=== PATIENT | female | born 2005 | race Two or more races ===

== ENCOUNTER 2025-06-15 22:53 | Inpatient (IN) | payer OTHER ==
[~2025-06-15] VITALS: Ht 152.4 cm; Wt 117.9 kg
[2025-06-15 20:06] VITALS: BP 123/73
[2025-06-15] MEDS ORDERED: RINGERS SOLUTION,LACTATED 1,000 ML IV SCH (23:15)
[2025-06-15] MEDS ORDERED: FOLIC ACID0.8 M1 PO (23:35)
[2025-06-15] MEDS ORDERED: PRENATAL + DHA1 EAC1 PO (23:35)
[2025-06-15 23:36] VITALS: BP 121/75
[2025-06-16 00:05] VITALS: BP 136/74
[2025-06-16 01:39] LABS: URINE APPEARANCE Cloudy; URINE BILIRRUBIN Negative (NEGATIVE); URINE BLOOD Negative; URINE COLOR Dark Yellow; URINE GLUCOSE Negative (NEGATIVE); URINE KETONE Negative (NEGATIVE); URINE LEUKOCYTE Large; URINE NITRATE Negative; URINE PROTEIN Trace (NEGATIVE); URINE UROBILINOGEN 1.0 E.U./dl
[2025-06-16 01:40] LABS: BASO % 0.3 % (0.1-1.2); EOS # 0.97 (0.04-0.54); EOS % 8.3 % (0.7-7.0); LYMPH # 1.17 (1.18-3.74); LYMPH % 10.0 % (19.3-53.1); MEAN PLATELET VOLUME 11.30 fl (9.4-12.4); MONO # 1.15 (0.24-0.82); MONO % 9.8 % (4.7-12.5); NEUT # 8.34 (1.56-6.13); NEUT % 71.2 % (34.0-71.1); RED CELL DISTRIBUTION WIDTH 14.7 % (11.6-14.4)
[2025-06-16 01:42] LABS: URINE BACTERIA 3027.4 uL (0.0-1933); URINE EPITHELIAL CELLS 19.0 uL (0.0-38.8); URINE RBC 32.7 uL (0.0-20.8); URINE WBC 488.4 uL (0.0-23.2)
[2025-06-16 01:44] LABS: URINE CAST 1.02 uL (0.0-1.40)
[2025-06-16 02:23] LABS: INR < 0.93
[2025-06-16 02:31] LABS: ALT/SGPT 43.0 U/L (12-78); AST/SGOT 30.0 U/L (15-37); BILIRUBIN TOTAL 0.43 mg/dL (0.3-1.2); BUN CREA RATIO 7.0 (7.0-25.0); CREATININE SERUM 0.57 mg/dL (0.55-1.02); GFR 132.63; GLOBULINA 3.6 G/DL (2.4-3.5); GLUCOSE FASTING 92.0 mg/dL (65-100); OSMOLALITY SERUM 280.0 MOSM/KG (275-295)
[2025-06-16 03:55] VITALS: BP 110/66
[2025-06-16] MEDS ORDERED: OXYTOCIN 20 UNITS/500ML RL PIGGYBAG IV ONE (06:23)
[2025-06-16] MEDS ORDERED: OXYTOCIN 500 ML IV SCH (06:45)
[2025-06-16] MEDS ORDERED: MORPHINE SULFATE 4 MG/ML CARTRIDGE IV STA (07:17)
[2025-06-16 07:50] VITALS: BP 106/58
[2025-06-16] MEDS ORDERED: CHLORHEXIDINE GLUCONATE 120 ML BOTTLE TOP ONE ×2 (09:33→10:30)
[2025-06-16] MEDS ORDERED: OXYTOCIN 20 UNITS/1000ML RL PIGGYBAG IV ONE (09:33)
[2025-06-16] MEDS ORDERED: ERYTHROMYCIN BASE OPHT 1GM EACH TUBE OP ONE ×2 (09:33→10:30)
[2025-06-16] MEDS ORDERED: LIDOCAINE HCL 1% 10ML VIAL ONE (09:33)
[2025-06-16] MEDS ORDERED: ACETAMINOPHEN 500 MG GEL..CAP PO PRN (10:30)
[2025-06-16] MEDS ORDERED: LIDOCAINE HCL 1% 10ML VIAL IJ ONE (10:30)
[2025-06-16] MEDS ORDERED: OXYTOCIN 1,000 ML IV SCH (10:30)
[2025-06-16 12:00] VITALS: BP 139/73
[2025-06-16] MEDS ORDERED: HYDROCORTISONE 2.5% 30 GM TUBE RECTAL SCH (13:00)
[2025-06-16] MEDS ORDERED: BENZOCAINE/MENTHOL 90 ML BOTTLE TOP SCH (13:00)
[2025-06-16 15:20] VITALS: BP 115/70
[2025-06-16 22:25] VITALS: BP 137/73
[2025-06-17 00:43] VITALS: BP 115/70
[2025-06-17 02:54] LABS: BASO % 0.2 % (0.1-1.2); EOS # 0.27 (0.04-0.54); EOS % 1.9 % (0.7-7.0); LYMPH # 1.63 (1.18-3.74); LYMPH % 11.7 % (19.3-53.1); MEAN PLATELET VOLUME 11.30 fl (9.4-12.4); MONO # 1.53 (0.24-0.82); MONO % 11.0 % (4.7-12.5); NEUT # 10.39 (1.56-6.13); NEUT % 74.8 % (34.0-71.1); RED CELL DISTRIBUTION WIDTH 14.8 % (11.6-14.4)
[2025-06-17 08:00] VITALS: BP 113/70
[2025-06-17 17:00] VITALS: BP 121/71
[2025-06-18] VITALS: BP 118/76
[2025-06-18 09:14] VITALS: BP 130/80
== END 2025-06-18 13:46 | disposition home or self-care (01) | DRG 807 ==
LOC: LDR 22:53 → OB/GYN 22:53
PROVIDERS: ADMIT Specialist; ATTEND Specialist
PROC: 4A1HXCZ Monitoring of Products of Conception, Cardiac Rate, External Approach (ICD-10-PCS; 2025-06-15)
PROC: 10E0XZZ Delivery of Products of Conception, External Approach (ICD-10-PCS; principal; 2025-06-16)
PROC: 0HQ9XZZ Repair Perineum Skin, External Approach (ICD-10-PCS; 2025-06-16)
DX: O70.0 First degree perineal laceration during delivery (principal); Z37.0 Single live birth; Z3A.37 37 weeks gestation of pregnancy